=== PATIENT | female | born 1990 | race Caucasian/White ===

== ENCOUNTER 2023-09-22 10:40 | Emergency (ER) | payer OTHER ==
[2023-09-22] VITALS (10 sets, daily range): BP systolic 96–119; BP diastolic 67–80
[~2023-09-22] VITALS: Ht 165.1 cm; Wt 59.0 kg
[2023-09-22 11:36] LABS: BASO% 0.5 % (0-3); EOS% 2.5 % (0-8); HEMATOCRIT 36.5 % (37.0-47.0); IMMATURE GRANULOCYTES 0.1 % (0.0-5.0); LYMPH% 24.5 % (15-41); MEAN CELL VOLUME 90.6 fL CALC (80.0-100.0); MEAN CORPUSCULAR HGB 29.8 pG CALC (26.0-32.0); MEAN CORPUSCULAR HGB CONC 32.9 g/dL CAL (32.0-36.0); MONO% 8.5 % (2-13); NEUT# 4.94 thou/uL (2.00-7.15); NEUT% 63.9 % (42-76); RED BLOOD COUNT 4.03 mill/uL (4.20-5.60)
[2023-09-22 11:46] LABS: ALBUMIN 4.4 g/dL (3.2-5.0); ALKALINE PHOSPHATASE 58 u/l (38-126); ANION GAP 9 (6-22 (CALC)); BILIRUBIN, TOTAL 0.7 mg/dL (0.02-1.3); BUN 11 mg/dL (7-17); BUN/CREATININE RATIO 15 (12-20 (CALC)); CARBON DIOXIDE 20 mmol/l (22-30); CHLORIDE 112 mmol/l (95-108); CREATININE 0.7 mg/dL (0.5-1.0); GFR FOR AFR.AMER. > 60 ML/MIN (>=60 (CALC)); GFR OTHER RACES > 60 ML/MIN (>=60 (CALC)); SGOT/AST 36 u/l (14-36); SODIUM 138 mmol/l (137-146); TOTAL PROTEIN 7.2 g/dL (6.3-8.2)
== END 2023-09-22 15:24 | disposition home or self-care (01) | DRG 556 ==
LOC: ED 10:40
PROVIDERS: Family Medicine
DX: M79.632 Pain in left forearm (principal); M25.512 Pain in left shoulder; M25.522 Pain in left elbow; M54.50 Low back pain, unspecified; E06.3 Autoimmune thyroiditis; V59.40XA Driver of pick-up truck or van injured in collision with unspecified motor vehicles in traffic accident, initial encounter